=== PATIENT | female | born 1995 | race Caucasian/White ===

== ENCOUNTER → 2020-01-10 09:21 | Outpatient (CLI) | payer OTHER, SELFPAY ==
[2020-01-11 08:05] LABS: Strep Grp B PCR NEG for Grp B Strep
== END ==
PROVIDERS: Visit Provider Obstetrics & Gynecology
DX: Z34.03 Encounter for supervision of normal first pregnancy, third trimester (principal); Z3A.36 36 weeks gestation of pregnancy
CPT/HCPCS: 87653

== ENCOUNTER → 2020-02-04 10:23 | Outpatient (CLI) | payer OTHER, SELFPAY ==
--- NOTE | 2020-02-04 10:27 | DI.US.S_ITS ---
PROCEDURE: US OB BIOPHYSICAL PROFILE INDICATIONS: BPP OUTSIDE/PRIOR DATING DATA: Last menstrual period (LMP): 04/29/19. LMP-based estimated date of delivery (VIKRAM): 02/03/20. TECHNIQUE: Real-time scanning was performed of the fetus for biophysical profile, with image documentation. Color and pulse Doppler interrogation was also performed of the umbilical artery near its insertion into the placenta. Endovaginal scanning: Not performed COMPARISON: None. FINDINGS: General: A single living intrauterine gestation is present. Presentation: Vertex Placenta: Placental position is right posterior, without previa. Amniotic fluid index: 14.7 cm, normal range is 5-24 cm. heart rate: 143 beats per minute. Maternal cervical canal: 4.0 cm long. Normal lower limit is 2.5 cm. Estimated gestational age from initial scan: No prior study available.. Biophysical profile: Tone: 2 points. Movement: 2 points. Respiration: 2 points. Largest pocket of fluid: 2 points. IMPRESSION: Biophysical profile is 8 of 8 possible points. Vertex presentation. No available prior OB ultrasound studies for review. Dictated by: Tk Duncan M.D. on 02/04/2020 at 13:25 Approved by: Tk Duncan M.D. on 02/04/2020 at 13:27
== END ==
PROVIDERS: Referring Provider Obstetrics & Gynecology; Visit Provider Obstetrics & Gynecology
DX: Z34.03 Encounter for supervision of normal first pregnancy, third trimester (principal); Z3A.39 39 weeks gestation of pregnancy
CPT/HCPCS: 76819

== ENCOUNTER 2020-02-07 12:44 | Outpatient (CLI) | payer OTHER, SELFPAY ==
--- NOTE | 2020-02-07 13:04 | P.TNLD_ITS ---
Visit Information Visit Information Date of evaluation: 02/07/20 Primary OB Provider: Nadia Urbina Reason for Evaluation: Yes non-stress test Comments/Additional reasons for admission: Patienti s a 25yo @40+4 pre senting for NST as part of postdates testing. Vital Signs Vital Signs: 121/79, HR 86 PFSH Medical History Allergies (Chronic ~2016) Eczema of both upper extremities (Acute ~2017) Headache (Inactive ~2007) Migraines (Acute ~2012) Surgical History [place] teeth extracted (Acute ~2008) Family History Grandmother Ovarian cancer Heart disease Grandfather Diabetes mellitus Pancreatic cancer Family/Other Pacemaker Grandfather Pacemaker Grandmother Endometriosis Social History marital status: household members: spouse lives independently: Yes pets and animals: Yes (Does not clean littler. ) education level: college occupational status: employed current occupational exposures/hazards: Yes special chase needs: No seatbelt use: always working smoke detector in home: Yes fire extinguisher in home: Yes carbon monox detector in home: Yes firearms in home: Yes firearms unloaded and locked: Yes do you feel safe at home: Yes Smoking Status: Former smoker second hand exposure: No alcohol intake: former substance use type: does not use during the past year weight has: decreased > 10 lbs well-balanced diet: daily or most days daily servings fruits/ve-1 caffeine: No eating out: 1-3 times/week Type(s) of exercise: walking frequency: 3-4 times per week Review of Systems Constitutional Constitutional: Reports system reviewed and no additional complaints, except as documented Evaluation Evaluation Baseline heart rate: 135 Variability: Moderate (11-25) monitor accelerations: Present monitor decelerations: Absent Category of Tracing: I Diagnosis, Plan/Disposition Plan/Disposition Plan: Home, scheduled induction in 2 days. OB Disposition: home
== END 2020-02-07 13:08 | disposition home or self-care (01) ==
LOC: LABOR 13:15 → OB 02-10 15:08
PROVIDERS: Referring Provider Obstetrics & Gynecology; Visit Provider Obstetrics & Gynecology
DX: O48.0 Post-term pregnancy (principal); Z3A.40 40 weeks gestation of pregnancy; Z01.812 Encounter for preprocedural laboratory examination
CPT/HCPCS: 59025; 87635; G0378; G0379

== ENCOUNTER → 2020-02-07 15:56 | Outpatient (CLI) | payer OTHER, SELFPAY ==
[2020-02-08 04:21] LABS: COVID19 Sendout Not Detected (Not Detect)
== END ==
PROVIDERS: Visit Provider Family Medicine
DX: Z01.812 Encounter for preprocedural laboratory examination (principal)
CPT/HCPCS: 87635

== ENCOUNTER 2020-02-09 18:15 | Inpatient (IN) | payer OTHER, SELFPAY ==
[2020-02-09] MEDS: DINOPROSTONE VAG (CERVIDIL) 10 MG VAG (21:30)
[2020-02-09 22:13] LABS: Add Manual Diff / Slide Review NO; Basophils Absolute Auto 200 /uL (0-100); Basophils Percent Auto 1.8 % (0-2); Eosinophils Absolute Auto 100 /uL (0-450); Eosinophils Percent Auto 1.5 % (2-4); Hematocrit 39.4 % (36-46); Hemoglobin 13.7 g/dL (12.0-16.0); Lymphocytes Absolute Auto 1900 /uL (1100-4500); Lymphocytes Percent Auto 21.2 % (25-40); Mean Corpuscular HGB Conc 34.7 % (30-36); Mean Corpuscular Hemoglobin 32.2 PG (26-34); Mean Corpuscular Volume 92.9 fL (80-100); Monocytes Absolute Auto 700 /uL (0-900); Monocytes Percent Auto 7.3 % (3-14); Neutrophils Absolute Auto 6100 /uL (1500-7000); Neutrophils Percent Auto 68.2 % (50-75); Platelet Count 270 X10^3/uL (150-400); Red Blood Cell Count 4.24 X10^6/uL (4.0-5.2); Red Cell Distribution Width 12.3 % (11.6-14.8)
[2020-02-09 23:16] VITALS: BP 137/82
--- NOTE | 2020-02-10 08:02 | P.HPOB_ITS ---
OB HPI Date/Time Date of admission: 02/09/20 Date Patient Seen: 02/10/20 Time Patient Seen: 07:50 History of Present Condition Chief complaint: EVAL OF LABOR : 1 Para: 0 Estimated Date of Delivery: 02/03/20 Estimated Gestational Age (weeks): 41 Narrative: Le Neri is a 25 year old @41+0 admitted for induction of labor for postdates. She reported feeling well on admission with normal movement and no complaints obstetrical or otherwise, and had had reassuring testing during her 40th week. Her had been complicated by 32 week transfer from the [facility], but she has had no other complications or relevant medical services assistant, medical, surgical, or family history. Indications Indication for induction OB: post dates History of Present care: good care Dating criteria: LMP confirmed by 1st trimester US Ultrasounds: normal 1st trimester US and normal mid trimester US Obstetrical complications: none Medical complications: none Preadmission Labs Blood type: A (+) positive -: Antibody screen: negative, GBS status: negative, HBsAG: negative, HIV: negative and RPR/VDLR: negative -: Chlamydia screen: not detected and Gonorrhea screen: not detected -: Rubella: immune PAP: Normal Sequential screen: WNL 1 hr GTT: 110 Evaluation Evaluation Baseline heart rate: 130 Variability: Moderate (11-25) monitor accelerations: Present monitor decelerations: Variable Contraction Frequency (minutes): 3 Category of Tracing: II Cervical dilation (cm): 3 Cervical effacement (%): 90 station: -2 Laboratory results: Laboratory Tests 02/09/20 02/09/20 21:30 21:30 WBC 9.0 RBC 4.24 Hgb 13.7 Hct 39.4 MCV 92.9 MCH 32.2 MCHC 34.7 RDW 12.3 Plt Count 270 Neut % (Auto) 68.2 Lymph % (Auto) 21.2 L [place] % (Auto) 7.3 Eos % (Auto) 1.5 L Baso % (Auto) 1.8 Neut # (Auto) 6100 Lymph # (Auto) 1900 [place] # (Auto) 700 Eos # (Auto) 100 Baso # (Auto) 200 H Blood Type A Positive Antibody Screen Negative Comments: Rare variable decelerations, +accels, +moderate variability. PFS Medical History Allergies (Chronic ~2016) Eczema of both upper extremities (Acute ~2017) Headache (Inactive ~2007) Migraines (Acute ~2012) Surgical History [place] teeth extracted (Acute ~2008) Family History Grandmother Ovarian cancer Heart disease Grandfather Diabetes mellitus Pancreatic cancer Family/Other Pacemaker Grandfather Pacemaker Grandmother Endometriosis Social History marital status: household members: spouse lives independently: Yes pets and animals: Yes (Does not clean littler. ) education level: college occupational status: employed current occupational exposures/hazards: Yes special chase needs: No seatbelt use: always working smoke detector in home: Yes fire extinguisher in home: Yes carbon monox detector in home: Yes firearms in home: Yes firearms unloaded and locked: Yes do you feel safe at home: Yes Smoking Status: Never smoker second hand exposure: No alcohol intake: former substance use type: does not use during the past year weight has: decreased > 10 lbs well-balanced diet: daily or most days daily servings fruits/ve-1 caffeine: No eating out: 1-3 times/week Type(s) of exercise: walking frequency: 3-4 times per week Meds Home Medications and Allergies Allergies Allergy/AdvReac Type Severity Reaction Status Date / Time No Known Drug Allergies Allergy Verified 02/07/20 16:09 Review of Systems Constitutional Constitutional: Reports system reviewed and no additional complaints, except as documented Cardiovascular Cardiovascular: Reports system reviewed; no additional complaints, except as documented Respiratory Respiratory: Reports system reviewed and no additional complaints, except as d ocumented Gastrointestinal Gastrointestinal: Reports system reviewed and no additional complaints, except as documented Genitourinary Genitourinary: Reports as per HPI Exam Vital Signs (past 8 hours): 117/56, HR 83, T 37.0 Const General: cooperative, healthy appearing and other (getting uncomfortable with contractions) GI Palpation: soft and No tender Objective Labs Result Diagrams: 02/09/20 21:30 Labs: Laboratory Results - last 24 hr 02/09/20 02/09/20 21:30 21:30 WBC 9.0 RBC 4.24 Hgb 13.7 Hct 39.4 MCV 92.9 MCH 32.2 MCHC 34.7 RDW 12.3 Plt Count 270 Neut % (Auto) 68.2 Lymph % (Auto) 21.2 L [place] % (Auto) 7.3 Eos % (Auto) 1.5 L Baso % (Auto) 1.8 Neut # (Auto) 6100 Lymph # (Auto) 1900 [place] # (Auto) 700 Eos # (Auto) 100 Baso # (Auto) 200 H Blood Type A Positive Antibody Screen Negative Assessment and Plan Assessment and Plan Assessment and Plan narrative: This patient has been admitted for cervical ripening overnight, with reassuring maternal and status. She will be transitioned to pitocin per the usual protocol for ongoing induction. - cEFM, toco - Epidural when desired Time Spent with Patient Total time spent with greater than 50% in coordination of care (as documented) at patient's floor/unit and/or counseling patient:: 25 - 35 minutes
[2020-02-10] MEDS: OXYTOCIN PREMIX 30 UNIT/500 ML PLAST..BAG IV (08:31)
[2020-02-10] MEDS: LACTATED RINGERS 1,000 ML 100 ML IV ×2 (08:31→10:13)
[2020-02-10] MEDS: FENT 2MCG/ML BUPIV 0.125% EPI 200 MCG/100 ML PLAST..BAG 12 MCG EPIDURAL (10:12)
[2020-02-10] MEDS: METHYLERGONOVINE 0.2 MG/ML VIAL IM (11:41)
--- NOTE | 2020-02-10 12:40 | PM.OBPRVD ---
 Events: Labor Induction and Meconium Stained Fluid Labor & Delivery Delivery date: 02/10/20 Intrapartal events: Precipitous Labor < 3 hours, Acceleration and Deceleration Cervical ripening method: per Cervidil protocol Induction method: per pitocin protocol Delivery augmentation: rupture of membranes Delivery monitor: external FHT and external uterine Route of delivery: L&D Laceration Description: Perineal - 2nd Degree Delivery repair: vicryl Estimated blood loss (mL): 300 Anesthesia type: Epidural Narrative: This patient is a 25yo now P1 admitted at 40+6 for postdates induction. She received a cervidil overnight, and made progress to a favorable cervix in the morning. She was transitioned to pitocin, received an epidural, and was found to be fully dilated shortly thereafter. She was AROMed for thick meconium, and after an approx. 20 minute second stage, was delivered of a healthy baby girl, apgars 9+9, weight 7#12. A loose nuchal cord was reduced at the perineum, and the shoulders delivered with ease. The second stage was complicated by late and variable decelerations in the setting of rapid descent, with resolution to a normal baseline with moderate variability in between. The placenta delivered spontaneously and intact with a three vessel cord, and a 2nd degree perineal laceration was repaired with 3-0 vicryl in the usual fashion. Due to persistent lower uterine segment atony, a single dose of 0.2mg IM methergine was administered during the repair. There were no other intrapartum or immediate complications. Plan for aftercare: Routine care.
--- NOTE | 2020-02-10 13:44 | PM.OBDS.1 ---
Discharge Providers Provider Date of admission: 02/09/20 18:15 Discharge Date: 02/11/20 Consults: 02/11/20 12:39 Consult to Card Punching Machine Operator Routine Comment: Discharge provider: Nadia Urbina MD Summary Hospital Course Date Patient Seen: 02/11/20 Time Patient Seen: 10:00 Procedures: vaginal delivery Hospital Course: This patient is a 25yo now P1 admitted for induction for postdates and induced with cervidil and pitocin. She progressed to fully dilated, and was delivered of a healthy baby gifl, apgars 9+9, weight 7#12. A 2nd degree perineal laceration was repaired in the usual fashion, and her intrapartum and course were otherwise uneventful. She was discharged on PPD#1 with routine precautions. Peripartum Data Infant Delivery Method: Natural Vaginal Laceration description: Perineal - 2nd Degree complications: none 1: Gender: Female Disposition of : home Discharge Diagnosis (1) Vaginal delivery: Status: Acute Status at Discharge Cognitive/behavioral status at discharge: oriented Functional status at discharge: independent ambulation Overall status at discharge: patient is progressing back to baseline Time Spent with Patient Time attestation: Total time spent providing and/or coordinating discharge services: Time spent: Greater than 30 minutes Objective Labs Result Diagrams: 02/09/20 21:30 Labs: Laboratory Results - last 24 hr 02/09/20 02/09/20 21:30 21:30 WBC 9.0 RBC 4.24 Hgb 13.7 Hct 39.4 MCV 92.9 MCH 32.2 MCHC 34.7 RDW 12.3 Plt Count 270 Neut % (Auto) 68.2 Lymph % (Auto) 21.2 L [place] % (Auto) 7.3 Eos % (Auto) 1.5 L Baso % (Auto) 1.8 Neut # (Auto) 6100 Lymph # (Auto) 1900 [place] # (Auto) 700 Eos # (Auto) 100 Baso # (Auto) 200 H Blood Type A Positive Antibody Screen Negative Discharge Plan Discharge Plan Patient Disposition: Home Discharge orders & Medications Follow up/Referrals: Nadia Urbina MD [Physician] - 03/18/20 11:00 am (check in 15 minutes prior to appointment) Diet/Activity/Treatments Diet: Regular Activity: Nothing in the vagina for 6 weeks. Avoid lifting more than 10 lbs for 6 weeks. If you have increasing bleeding, pain, fevers, chills, trouble breathing, headaches, vision changes, nausea, vomiting, or any other symptoms or concerns, call the office number or come to the ED. Skin/Wound/Dressing Care Report to your healthcare provider any signs of infection, such as:: chills, fever, night sweats, increased pain, unusual drainage and unusual redness Visit Report/Discharge Packet Instructions: DI for Labor and Delivery, Vaginal Stand Alone Forms: Discharge: Care Visit Report Forms: Patient Portal/API, Stroke Signs & Symptoms Discharges patient from system. Discharge Date/Time: 02/11/20 13:00
[2020-02-10] MEDS: IBUPROFEN 600 MG TABLET PO ×2 (17:08→23:42)
[2020-02-10] MEDS: DERMOPLAST SPRAY 20% 60 ML 1 SPRAY TOP ×2 (17:09→23:13)
[2020-02-11] MEDS: IBUPROFEN 600 MG TABLET PO ×2 (06:01→12:08)
--- NOTE | 2020-02-11 10:50 | P.PNOB_ITS ---
Subjective - OB Subjective Patient comments: no complaints, pain well controlled, tolerating diet and flatus present baby status: doing well and nursing well [place] feeding status: exclusively breast feeding Narrative: This patient is a 25yo now P1 PPD#1 s/p after IOL for postdates. She is feeling well with good pain control, tolerating PO, passing flatus, voiding normally, with moderate lochia and ambulating without issues. No other complaints. Date Patient Seen: 02/11/20 Time Patient Seen: 11:01 Exam Vital Signs (past 8 hours): 123/87, HR 90, T 99.1F Resp Effort & Inspection: normal respiratory effort Auscultation: clear to auscultation bilaterally Cardio Rate: regular rate Rhythm: regular rhythm GI Inspection: other (small healing abrasions at site of Tamiko EFM device) Palpation: soft and No tender Other: Fundus firm, below u External Female Exam: external appearance normal and other (incision c/d/i) Skin General: no rashes or lesions noted Objective Labs Result Diagrams: 02/09/20 21:30 Assessment & Plan Assessment and Plan (1) Vaginal delivery: Status: Acute Current Visit: Yes Plan day: 1 plan OB: routine care and discharge home Comments: This patient is doing well, meeting goals and stable for discharge with outpatient follow up. Time Spent With Patient Time: Total time spent is greater than 50% in coordination of care (as documented) at patient's floor/unit and/or counseling patient: Time with patient: 15-24 minutes
[2020-02-11 12:32] VITALS: BP 137/82; PULSE 90; RESP 17; TEMP 36.3
== END 2020-02-11 13:00 | disposition home or self-care (01) | DRG 807 ==
PROVIDERS: Admitting Provider Obstetrics & Gynecology; Referring Provider Family Medicine; Visit Provider Obstetrics & Gynecology
DX: O48.0 Post-term pregnancy (principal); Z37.0 Single live birth; Z3A.41 41 weeks gestation of pregnancy; O77.0 Labor and delivery complicated by meconium in amniotic fluid; O69.81X0 Labor and delivery complicated by cord around neck, without compression, not applicable or unspecified; O70.1 Second degree perineal laceration during delivery
CPT/HCPCS: 01967; 59050; 59200; 59410; 85025; 86850; 86900; 86901; G0379; J2210; J2590

== ENCOUNTER → 2022-02-25 16:49 | Outpatient (CLI) | payer OTHER, SELFPAY ==
[2022-02-25 17:37] LABS: Appearance Urine UA CLEAR; Bilirubin Urine UA NEGATIVE (NEGATIVE); Color Urine UA YELLOW; Glucose Urine UA NEGATIVE (Negative); Ketones Urine UA NEGATIVE (NEGATIVE); Leukocyte Esterase Urine UA NEGATIVE (NEGATIVE); Nitrite Urine UA NEGATIVE (Negative); Occult Blood Urine UA NEGATIVE (Negative); Protein Urine UA NEGATIVE (Negative); Specific Gravity Urine UA <=1.005 (1.000-1.035); Urobilinogen Urine UA 0.2 E.U./dL (0.2)
[2022-02-25 17:42] LABS: pH Urine UA 6.5 (4.5-8.0)
[2022-02-25 18:09] LABS: Add Manual Diff / Slide Review NO; Basophils Absolute Auto 100 /uL (0-100); Basophils Percent Auto 0.9 % (0-2); Eosinophils Absolute Auto 100 /uL (0-450); Eosinophils Percent Auto 1.4 % (2-4); Hematocrit 35.9 % (36-46); Hemoglobin 12.7 g/dL (12.0-16.0); Lymphocytes Absolute Auto 3000 /uL (1100-4500); Lymphocytes Percent Auto 39.2 % (25-40); Mean Corpuscular HGB Conc 35.4 % (30-36); Mean Corpuscular Hemoglobin 30.9 PG (26-34); Mean Corpuscular Volume 87.3 fL (80-100); Monocytes Absolute Auto 700 /uL (0-900); Monocytes Percent Auto 8.4 % (3-14); Neutrophils Absolute Auto 3900 /uL (1500-7000); Neutrophils Percent Auto 50.1 % (50-75); Platelet Count 296 X10^3/uL (150-400); Red Blood Cell Count 4.11 X10^6/uL (4.0-5.2); Red Cell Distribution Width 12.1 % (11.6-14.8); White Blood Cell Count 7.7 X10^3/uL (4.5-11.0)
[2022-02-26 06:17] LABS: RPR Screen Non Reactive (Non Reactive)
[2022-02-27 06:11] LABS: Varicella IgG Antibody 301 index (Immune >165)
[2022-02-28 16:44] LABS: HIV 1 & 2 Ab/Ag 4th Gen Combo NEGATIVE (NEGATIVE); Hep C Virus Ab w/Reflex Quant NEGATIVE s/c (NEGATIVE); Hepatitis B Surface Antigen NEGATIVE s/c (NEGATIVE)
[2022-03-11 11:55] LABS: Specimen Label NATERA
== END ==
PROVIDERS: PCP Obstetrics & Gynecology; Referring Provider Obstetrics & Gynecology; Visit Provider Obstetrics & Gynecology
DX: Z34.81 Encounter for supervision of other normal pregnancy, first trimester (principal)
CPT/HCPCS: 36415; 80055; 81003; 86787; 86803; 86850; 86900; 86901; 87086; 87389

== ENCOUNTER → 2022-04-26 16:25 | Outpatient (CLI) | payer OTHER, SELFPAY ==
[2022-04-29 20:38] LABS: AFP Value 41.3 ng/mL (.); Gest Age on Col Date 17.7 weeks (.); Insulin Dep Diabetes No (.); OSBR Risk 1IN 8371 (.); Results Report (.); Test Results *Screen Negative* (.)
== END ==
PROVIDERS: Referring Provider Obstetrics & Gynecology; Visit Provider Obstetrics & Gynecology
DX: Z34.82 Encounter for supervision of other normal pregnancy, second trimester (principal); Z3A.17 17 weeks gestation of pregnancy
CPT/HCPCS: 36415; 82105; 87086

== ENCOUNTER → 2022-05-13 07:36 | Outpatient (CLI) | payer OTHER, SELFPAY ==
--- NOTE | 2022-05-13 07:38 | DI.US.S_ITS ---
PROCEDURE: US OB >= 14 WEEKS FETUS INDICATIONS: ANATOMY OUTSIDE/PRIOR DATING DATA: Last menstrual period (LMP): Unknown. First dating scan (date and location): 02/25/2022 Estimated date of delivery (VIKRAM) from first dating scan: 09/27/2022. TECHNIQUE: Real-time scanning was performed of the fetus, with image documentation and biometric measurements. Endovaginal scanning: Not performed COMPARISON: [facility], , OB >= 14 WEEKS FETUS, 02/07/2020, 12:04. FINDINGS: General: A single living intrauterine gestation is present. Presentation: Variable. Placenta: Placental position is posterior left , without previa. Marginal cord insertion 1.1 cm from the placental edge. Amniotic fluid index: 13.5 cm, normal range is 5-24 cm. Single deepest vertical pocket is 5.0 cm. heart rate: 143 beats per minute. Maternal cervical canal: 5.7 cm long. Normal lower limit is 2.5 cm. biometrics: Biparietal diameter: 4.9 cm, 20 weeks 5 days Head circumference: 17.7 cm, 20 weeks 1 day Abdominal circumference: 16.2 cm, 21 weeks 2 days Femur length: 3.4 cm, 20 weeks 4 days Composite gestational age from present scan: 20 weeks 5 days Estimated weight and percentile: 384 g, 71st percentile Anatomic survey: Neuro: Ventricles are non-dilated at less than 10 mm. Cisterna magna is normal at 3-11 mm. Cerebellum is normal in size and morphology. Nuchal skin fold: Normal at less than 6 mm between 14-21 weeks gestational age. Face: Nose and lips are normal. Profile not well seen. Spine: No evidence for spina bifida. Heart: 4-chambered heart is present unremarkable RVOT. LVOT not well seen.. Diaphragm: Diaphragm is intact. Stomach: Left-sided stomach is present. Kidneys: No hydronephrosis. Normal is less than 5 mm in 2nd trimester, less than 7 mm in 3rd trimester. Cord: 3-vessel cord has orthotopic insertion. Bladder: Normal in size. Extremities: All 4 extremities identified. IMPRESSION: 1. Single living intrauterine in variable presentation. 2. The facial profile and left ventricular outflow tract are not well visualized. Short interval follow-up/re-evaluation could be performed if clinically indicated. 3. Visualized anatomy is within normal limits. 4. Marginal umbilical cord insertion on the placenta. Recommend follow-up ultrasound for growth assessment and to evaluate for progression to velamentous cord origin at 28-32 weeks gestational age. We strive to produce accurate, complete, and clear reports of imaging services. To assist us in improving patient care, this report was composed using standard report templates and voice recognition software. Therefore, it may contain abnormal punctuation, insertions and/or omissions. Occasional wrong-word or sound-alike substitutions may occur. Though we review the report and make efforts to correct it, we do recommend that the report be read carefully in proper context to recognize any text inaccuracies. Dictated by: Jordin Inman M.D. on 05/13/2022 at 18:46 Approved by: Jordin Inman M.D. on 05/13/2022 at 18:57
== END ==
PROVIDERS: PCP Student in an Organized Health Care Education/Training Program; Referring Provider Obstetrics & Gynecology; Visit Provider Obstetrics & Gynecology
DX: Z34.82 Encounter for supervision of other normal pregnancy, second trimester (principal); Z3A.20 20 weeks gestation of pregnancy
CPT/HCPCS: 76811

== ENCOUNTER → 2022-05-27 07:52 | Outpatient (CLI) | payer OTHER, SELFPAY ==
--- NOTE | 2022-05-27 07:52 | DI.US.S_ITS ---
PROCEDURE: US OB FOLLOW UP INDICATIONS: FOLLOW UP ANATOMY OUTSIDE/PRIOR DATING DATA: First dating scan (date and location): 02/25/2022 Estimated date of delivery (VIKRAM) from first dating scan: 09/27/2022 TECHNIQUE: Real-time scanning was performed of the fetus, with image documentation. Endovaginal scanning: Not performed COMPARISON: 05/13/2022 FINDINGS: A single living intrauterine gestation is present. Presentation: Breech Placenta: Posterior without previa Amniotic fluid index: 12.4 heart rate: 140 beats per minute Maternal cervical canal: 5.7 cm Working gestational age based on 1st ultrasound is 22 weeks and 3 days. The outflow tracks of the heart are within normal limits on today's study. The facial profile view is also within normal limits. Again seen is the superior marginal cord insertion. IMPRESSION: Living intrauterine gestation at 22 weeks and 3 days. Posterior placenta without previa. Profile view and cardiac outflow views are well seen and within normal limits. This completes the anatomic survey, in combination with the prior study. Superior marginal cord insertion. Recommendations provided on prior imaging report. Dictated by: Lonnie Palmer M.D. on 05/27/2022 at 12:11 Approved by: Lonnie Palmer M.D. on 05/27/2022 at 12:14
== END ==
PROVIDERS: PCP Student in an Organized Health Care Education/Training Program; Referring Provider Obstetrics & Gynecology; Visit Provider Obstetrics & Gynecology
DX: Z34.82 Encounter for supervision of other normal pregnancy, second trimester (principal); Z3A.22 22 weeks gestation of pregnancy
CPT/HCPCS: 76816

== ENCOUNTER 2022-06-24 07:45 | Outpatient (CLI) | payer OTHER, SELFPAY ==
--- NOTE | 2022-06-24 09:16 | P.TNLD_ITS ---
Visit Information Visit Information Date of evaluation: 06/24/22 Primary OB Provider: Genet Benjamin On-call OB Provider: Genet Benjamin Reason for Evaluation: Yes non-stress test Comments/Additional reasons for admission: Le is a 27 yo Here for a nonstress test to check extended heart rate tracing due to heart rate ectopy auscultated in the office with frequent successive beats of ectopy 2 days ago.. She was unable to stay for the nonstress test at that visit. [facility] Medical History (Updated 06/24/22 @ 09:27 by Genet Benjamin MD) Allergies (~2016) Eczema of both upper extremities (~2017) Headache (~2007) Migraines (~2012) Surgical History [place] teeth extracted (~2008) Family History (Updated 02/18/22 @ 10:10 by Mary Ward RN) Grandmother Ovarian cancer Heart disease Grandfather Diabetes mellitus Pancreatic cancer Family/Other Pacemaker Grandfather Pacemaker Grandmother Endometriosis Father DVT (deep venous thrombosis) Social History marital status: number of children: 1 household members: spouse lives independently: Yes housing: house pets and animals: Yes (3 cats, 1 dog, 1 turtle, does not manage pet waste) education level: college 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) current occupational exposures/hazards: Yes special chase needs: No travel history: over 6 months ago seatbelt use: always helmet use: Yes water heater temp set < 120 deg: Yes working smoke detector in home: Yes fire extinguisher in home: Yes carbon monox detector in home: Yes firearms in home: Yes firearms unloaded and locked: Yes do you feel safe at home: Yes Smoking Status: Never smoker second hand exposure: No ( smokes, but stays away from pt and child when doing so) alcohol intake: former substance use type: does not use during the past year weight has: increased > 10 lbs well-balanced diet: daily or most days daily servings fruits/ve-4 caffeine: Yes eating out: 1-3 times/week Type(s) of exercise: walking and weight lifting (heavy lifting at work) frequency: 3-4 times per week Evaluation Evaluation Baseline heart rate: 140 Variability: Average (6-10) monitor accelerations: Present (EGA appropriate 8-10 bt accels, also audible with FM) Monitor Decelerations: Absent Status: Category l Comments: on 40 minute of monitoring Only a few beats of ectopy in the first 5 minutes and the last 5 minutes. Reassuring EFM Diagnosis, Plan/Disposition Final Diagnosis (1) Irregular heart rate affecting management of mother: Status: Acute Problem details: frequent FHR ectopy on office auscultation Plan/Disposition Plan: Only occasional heart rate skips beats, ectopy, today. No signs of arrhythmia on the EFM. EFM reassuring. Rviewed with the patient. Will have her return to the office in 2 weeks to recheck EFM auscultation. OB Disposition: home
== END 2022-06-24 09:10 | disposition home or self-care (01) ==
LOC: LABOR 08:53 → OB 06-27 17:11
PROVIDERS: PCP Student in an Organized Health Care Education/Training Program; Referring Provider Obstetrics & Gynecology; Visit Provider Obstetrics & Gynecology
DX: O36.8330 Maternal care for abnormalities of the fetal heart rate or rhythm, third trimester, not applicable or unspecified (principal); Z3A.26 26 weeks gestation of pregnancy
CPT/HCPCS: 36415; 59025; 82950; 84439; 84443; 85014; 85018; G0378; G0379

== ENCOUNTER → 2022-06-24 09:31 | Outpatient (CLI) | payer OTHER, SELFPAY ==
[2022-06-24 11:45] LABS: Hematocrit 34.6 % (36-46); Hemoglobin 11.9 g/dL (12.0-16.0)
[2022-06-24 12:04] LABS: GTT (PREG) 1 Hour PP 50gm Dose 132 mg/dL (76-139)
[2022-06-24 12:20] LABS: Free T4, Direct Thyroxine 0.78 ng/dL (0.78-2.19)
[2022-06-24 12:35] LABS: Thyroid Stimulating Hormone 0.841 uIU/mL (0.47-4.68)
== END ==
PROVIDERS: PCP Student in an Organized Health Care Education/Training Program; Referring Provider Obstetrics & Gynecology; Visit Provider Obstetrics & Gynecology
DX: O36.8390 Maternal care for abnormalities of the fetal heart rate or rhythm, unspecified trimester, not applicable or unspecified (principal); Z3A.26 26 weeks gestation of pregnancy
CPT/HCPCS: 36415; 82950; 84439; 84443; 85014; 85018

== ENCOUNTER → 2022-08-03 13:01 | Outpatient (CLI) | payer OTHER, SELFPAY ==
--- NOTE | 2022-08-03 13:02 | DI.US.S_ITS ---
PROCEDURE: US OB LIMITED INDICATIONS: EFW; PLACENTAL CORD INSERT OUTSIDE/PRIOR DATING DATA: Last menstrual period (LMP): Unknown. LMP-based estimated date of delivery (VIKRAM): Unknown. First dating scan (date and location): 02/25/2022. Estimated date of delivery (VIKRAM) from first dating scan: 10/17/2021. The calculations are made using the ultrasound VIKRAM of 10/17/2021. TECHNIQUE: Real-time scanning was performed of the fetus, with image documentation and biometric measurements. Biophysical profile was also obtained. COMPARISON: [facility], OB FOLLOW UP, 05/27/2022, 8:24. [facility], OB >= 14 WEEKS FETUS, 05/13/2022, 7:54. [facility] PELVIC COMPLETE, 02/25/2022, 16:38. FINDINGS: General: A single living intrauterine gestation is present. Presentation: Vertex. Placenta: Placental position is posterior , without previa. Amniotic fluid index: 12.7 cm, normal range is 5-24 cm. Single deepest vertical pocket is 3.9 cm. heart rate: 139 beats per minute. Maternal cervical canal: 4.4 cm long. Normal lower limit is 2.5 cm. biometrics: Biparietal diameter: 8.4 cm 33 weeks 5 days Head circumference: 30.2 cm 33 weeks 4 days Abdominal circumference: 27.8 cm 31 weeks 6 days Femur length: 6.2 cm 32 weeks 1 day Composite gestational age from initial ultrasound: 32 weeks 1 day Composite gestational age from present scan: 32 weeks 6 days Estimated weight and percentile: 1009 and 42 g, 44th percentile Miscellaneous: Placental cord insertion measures 3.2 cm from the margin. IMPRESSION: Single live intrauterine with ultrasound gestational age of 32 weeks 6 days. Placental cord insertion 3.2 cm from the margin. Appropriate interval growth. We strive to produce accurate, complete, and clear reports of imaging services. To assist us in improving patient care, this report was composed using standard report templates and voice recognition software. Therefore, it may contain abnormal punctuation, insertions and/or omissions. Occasional wrong-word or sound-alike substitutions may occur. Though we review the report and make efforts to correct it, we do recommend that the report be read carefully in proper context to recognize any text inaccuracies. Dictated by: Bernice Spencer M.D. on 08/03/2022 at 16:13 Approved by: Bernice Spencer M.D. on 08/03/2022 at 16:15
== END ==
PROVIDERS: PCP Student in an Organized Health Care Education/Training Program; Referring Provider Obstetrics & Gynecology; Visit Provider Obstetrics & Gynecology
DX: O43.193 Other malformation of placenta, third trimester (principal); Z3A.32 32 weeks gestation of pregnancy
CPT/HCPCS: 76815

== ENCOUNTER → 2022-09-07 14:20 | Outpatient (CLI) | payer OTHER, SELFPAY ==
[2022-09-08 15:17] LABS: Strep Grp B PCR NEG for Grp B Strep
== END ==
PROVIDERS: PCP Student in an Organized Health Care Education/Training Program; Referring Provider Obstetrics & Gynecology; Visit Provider Obstetrics & Gynecology
DX: Z36.85 Encounter for antenatal screening for Streptococcus B; Z3A.36 36 weeks gestation of pregnancy
CPT/HCPCS: 87653

== ENCOUNTER 2022-09-29 10:17 | Outpatient (CLI) | payer OTHER, SELFPAY ==
--- NOTE | 2022-09-29 10:48 | P.TNLD_ITS ---
Visit Information Visit Information Date of evaluation: 09/29/22 Primary OB Provider: Ayaan Rodriguez Reason for Evaluation: Yes non-stress test Comments/Additional reasons for admission: 27 yo at 40+0 wks EGA for [facility] Medical History (Updated 09/29/22 @ 10:10 by Ayaan Rodriguez MD) Allergies (~2016) Eczema of both upper extremities (~2017) Headache (~2007) Migraines (~2012) Surgical History [place] teeth extracted (~2008) Family History (Updated 02/18/22 @ 10:10 by Mary Ward RN) Grandmother Ovarian cancer Heart disease Grandfather Diabetes mellitus Pancreatic cancer Family/Other Pacemaker Grandfather Pacemaker Grandmother Endometriosis Father DVT (deep venous thrombosis) Social History marital status: number of children: 1 household members: spouse lives independently: Yes housing: house pets and animals: Yes (3 cats, 1 dog, 1 turtle, does not manage pet waste) education level: college 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) current occupational exposures/hazards: Yes special chase needs: No travel history: over 6 months ago seatbelt use: always helmet use: Yes water heater temp set < 120 deg: Yes working smoke detector in home: Yes fire extinguisher in home: Yes carbon monox detector in home: Yes firearms in home: Yes firearms unloaded and locked: Yes do you feel safe at home: Yes Smoking Status: Never smoker second hand exposure: No ( smokes, but stays away from pt and child when doing so) alcohol intake: former substance use type: does not use during the past year weight has: increased > 10 lbs well-balanced diet: daily or most days daily servings fruits/ve-4 caffeine: Yes eating out: 1-3 times/week Type(s) of exercise: walking and weight lifting (heavy lifting at work) frequency: 3-4 times per week Evaluation Evaluation Baseline heart rate: 135 Variability: Moderate (11-25) monitor accelerations: Present Monitor Decelerations: Absent Category of Tracing: Reactive Diagnosis, Plan/Disposition Plan/Disposition Plan: Continue routine care w/ kick counts and counselled re: labor. Induction at 41 weeks if undelivered. OB Disposition: home
== END 2022-09-29 10:55 | disposition home or self-care (01) ==
LOC: OB 10-01 15:27
PROVIDERS: PCP Student in an Organized Health Care Education/Training Program; Referring Provider Obstetrics & Gynecology; Visit Provider Obstetrics & Gynecology
DX: O48.0 Post-term pregnancy (principal); Z3A.40 40 weeks gestation of pregnancy
CPT/HCPCS: 59025; G0378; G0379

== ENCOUNTER 2022-10-02 23:03 | Inpatient (IN) | payer OTHER, SELFPAY ==
--- NOTE | 2022-10-03 00:29 | PM.OBHP.IH.1 ---
OB HPI Date/Time Date of admission: 10/03/22 Date Patient Seen: 10/03/22 Time Patient Seen: 00:33 History of Present Condition Chief complaint: contractions VIKRAM Calculator Estimated Delivery Date Method Current WG Current Estimate 09/29/22 LMP (Certain) 40w 4d Other Estimates 09/27/22 Ultrasound #1 40w 6d : 2 Para: 1 care: good care Dating criteria OB: based on LMP only Ultrasounds: normal mid trimester US Abnormal ultrasound findings: marginal cord insertion resolved Obstetrical complications: other ( ectopy noted in second trimester - resolved) Preadmission Labs Last OB Lab Results: Blood Type A Positive 02/25/22 17:03 Antibody Screen Negative 02/25/22 17:03 Hematocrit 34.6 % (36-46) L 06/24/22 10:30 Hemoglobin 11.9 g/dL (12.0-16.0) L 06/24/22 10:30 Hepatitis B Surface Antigen Negative s/c (NEGATIVE) 02/25/22 17:03 Hepatitis C Antibody Negative s/c (NEGATIVE) 02/25/22 17:03 Rubella Antibody 117.0 IU/mL (>15) 02/25/22 17:03 Varicella-Zoster IgG Antibody 301 index (Immune >165) 02/25/22 17:03 Glucose 1 Hour 132 mg/dL (76-139) 06/24/22 10:30 Group B Streptococcus (PCR) Neg for grp b strep 09/07/22 14:20 Genetic Screens: Cell-free DNA: Normal and Alpha-fetoprotein: Normal Prior (ies) Past Pregnancies Del. Date GA/Weeks Labor Lgth Wt Sex Route Outcome Anesthesia Place Delv Breastfeed Preg Comp Name 02/10/20 41 5 7 lb 11 oz Female vaginal live - full term IH 8 months none Jemma Evaluation Evaluation Uterine Contraction Intensity: Moderate Status: Category l Dilation (cm): 4 Effacement (%): 75 station: 0 Comments: membranes intact [facility] Medical History Allergies (~2016) Eczema of both upper extremities (~2017) Headache (~2007) Migraines (~2012) Surgical History [place] teeth extracted (~2008) Family History Grandmother Ovarian cancer Heart disease Grandfather Diabetes mellitus Pancreatic cancer Family/Other Pacemaker Grandfather Pacemaker Grandmother Endometriosis Father DVT (deep venous thrombosis) Social History marital status: number of children: 1 household members: spouse lives independently: Yes housing: house pets and animals: Yes (3 cats, 1 dog, 1 turtle, does not manage pet waste) education level: college 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) current occupational exposures/hazards: Yes special chase needs: No travel history: over 6 months ago seatbelt use: always helmet use: Yes water heater temp set < 120 deg: Yes working smoke detector in home: Yes fire extinguisher in home: Yes carbon monox detector in home: Yes firearms in home: Yes firearms unloaded and locked: Yes do you feel safe at home: Yes Smoking Status: Never smoker second hand exposure: No ( smokes, but stays away from pt and child when doing so) alcohol intake: former substance use type: does not use during the past year weight has: increased > 10 lbs well-balanced diet: daily or most days daily servings fruits/ve-4 caffeine: Yes eating out: 1-3 times/week Type(s) of exercise: walking and weight lifting (heavy lifting at work) frequency: 3-4 times per week Meds Home Medications and Allergies Home Medications Medication Instructions Recorded Confirmed Type prenat.vits,elder,qdf-[id number]-dcbca 1 tab PO DAILY 03/18/20 10/02/22 History Allergies Allergy/AdvReac Type Severity Reaction Status Date / Time No Known Drug Allergies Allergy Verified 10/02/22 23:41 Review of Systems Review of Systems ROS: Yes All systems reviewed with the patient and are negative except as otherwise documented OB Exam Vital signs Blood Pressure: 130/86 Temperature: 97.5 F Narrative Exam Narrative: focusing during contractions Cardio Rate: regular rate Rhythm: regular rhythm GI Palpation: Yes soft Presentation: vertex (per RN) Estimated Weight (lbs): 7 Objective Labs Result Diagrams: 10/03/22 00:26 Assessment and Plan Assessment and Plan Assessment and Plan narrative: 27yo with spontaneous labor at 40 !/2 weeks GBS negative / covid pending BT - A+, rub immune Tracing reassuring Membranes intact Desires unmedicated labor / delivery Anticipate Time Spent with Patient Total time spent with greater than 50% in coordination of care (as documented) at patient's floor/unit and/or counseling patient:: 25 - 35 minutes
[2022-10-03 00:49] VITALS: BP 117/64
[2022-10-03 00:50] LABS: Add Manual Diff / Slide Review NO; Basophils Absolute Auto 0 /uL (0-100); Basophils Percent Auto 0.4 % (0-2); Eosinophils Absolute Auto 100 /uL (0-450); Eosinophils Percent Auto 0.6 % (2-4); Hematocrit 38.2 % (36-46); Hemoglobin 12.8 g/dL (12.0-16.0); Lymphocytes Absolute Auto 2700 /uL (1100-4500); Lymphocytes Percent Auto 26.6 % (25-40); Mean Corpuscular HGB Conc 33.6 % (30-36); Mean Corpuscular Hemoglobin 30.5 PG (26-34); Mean Corpuscular Volume 90.7 fL (80-100); Monocytes Absolute Auto 700 /uL (0-900); Monocytes Percent Auto 7.1 % (3-14); Neutrophils Absolute Auto 6700 /uL (1500-7000); Neutrophils Percent Auto 65.3 % (50-75); Platelet Count 325 X10^3/uL (150-400); Red Blood Cell Count 4.21 X10^6/uL (4.0-5.2); Red Cell Distribution Width 12.9 % (11.6-14.8); White Blood Cell Count 10.2 X10^3/uL (4.5-11.0)
[2022-10-03 00:55] VITALS: BP 130/86; TEMP 36.4
[2022-10-03 01:33] LABS: COVID19 -Nasal RAPID Negative (Negative)
[2022-10-03] MEDS: LACTATED RINGERS 1,000 ML 999 ML IV (01:48)
--- NOTE | 2022-10-03 02:42 | PM.OBPRVD ---
Labor & Delivery Delivery date: 10/03/22 Intrapartal Events: None Cervical ripening method: none Induction method: none Route of delivery: L&D Laceration Description: Perineal - 2nd Degree (local lidocaine used) Delivery repair: vicryl (3-0) Estimated blood loss (mL): 200 Anesthesia Type: None Narrative: 27 yo G2 now P2 admitted with regular ctx and 4 cm dilated at 40 1/2 weeks. Rapid active phase and second stage. SROM / clear at complete. Delivered vigorous male OA over second degree tear. Baby placed on mother's chest for drying and stimulation. Cord clamped after intentional delay - FOB cut. Apgars 9/9. Cord blood collected. Intact placenta with 3 VC delivered spontaneously. Repair done with local lidocaine and 3-0 Vicryl. EBL 200. Parents happy to see [place]. Plan for aftercare: Routine care
[2022-10-03 03:07] VITALS: BP 113/71; PULSE 82; RESP 16; TEMP 36.3
[2022-10-03] MEDS: LIDOCAINE 1% 20 ML (03:09)
[2022-10-03] MEDS: OXYTOCIN PREMIX 30 UNIT/500 ML PLAST..BAG 250 UNIT IV (03:10)
[2022-10-03] MEDS: ACETAMINOPHEN 325 MG TABLET 650 MG PO ×2 (04:42→11:16)
[2022-10-03 07:00] VITALS: BP 113/71; PULSE 82; RESP 16; TEMP 36.3
[2022-10-03] MEDS: PRENATAL VIT,CALC/IRON/FOLIC 1 TABLET 1 TAB PO (10:08)
[2022-10-03] MEDS: DOCUSATE 100 MG CAPSULE PO (10:08)
[2022-10-03] MEDS: IBUPROFEN 600 MG TABLET PO (11:16)
[2022-10-04] MEDS: ACETAMINOPHEN 325 MG TABLET 650 MG PO (02:55)
[2022-10-04] MEDS: IBUPROFEN 600 MG TABLET PO (02:55)
[2022-10-04 06:38] LABS: Add Manual Diff / Slide Review NO; Basophils Absolute Auto 100 /uL (0-100); Basophils Percent Auto 0.6 % (0-2); Eosinophils Absolute Auto 100 /uL (0-450); Eosinophils Percent Auto 1.5 % (2-4); Hematocrit 32.7 % (36-46); Lymphocytes Absolute Auto 2500 /uL (1100-4500); Lymphocytes Percent Auto 28.1 % (25-40); Mean Corpuscular HGB Conc 33.6 % (30-36); Mean Corpuscular Hemoglobin 30.6 PG (26-34); Mean Corpuscular Volume 91.1 fL (80-100); Monocytes Absolute Auto 500 /uL (0-900); Monocytes Percent Auto 5.8 % (3-14); Neutrophils Absolute Auto 5700 /uL (1500-7000); Platelet Count 260 X10^3/uL (150-400); Red Blood Cell Count 3.59 X10^6/uL (4.0-5.2)
--- NOTE | 2022-10-04 08:01 | PM.OBDS.1 ---
Discharge Providers Provider Date of admission: 10/02/22 23:03 Discharge Date: 10/04/22 Primary care physician: Gabi Miller MD Consults: 10/04/22 02:39 Consult to Remote Sensing Analyst Routine Comment: Discharge provider: Ayaan Rodriguez MD Summary Hospital Course Date Patient Seen: 10/04/22 Time Patient Seen: 08:01 Diagnoses: Intrauterine , 40+4 weeks EGA, delivered via vaginal Hospital Course: Patient presented early on the morning of 10/03/2022 in active labor and delivered spontaneously shortly after her arrival a viable male infant, sustaining a second-degree perineal laceration at the time of delivery. Following delivery both mother and baby have done extremely well with mother experiencing prompt return of bowel and bladder function, she is remained afebrile and normotensive, she is tolerating a regular diet, she is ambulating independently, and her pain is well relieved with oral pain medications. She will be discharged at this time to home after counseling regarding precautionary symptoms, limitations of activity, medications, and plans for follow-up which will be in 6 weeks. She will continue use of vitamins daily and use [id number]-hydxkty Tylenol and/or ibuprofen as needed for pain relief. Peripartum Data Delivery Method: Natural Vaginal Laceration Description: Perineal - 2nd Degree Episiotomy description: None complications: none Harper 1: Gender: Male Disposition of : home Status at Discharge Cognitive/behavioral status at discharge: oriented Functional status at discharge: independent ambulation Overall status at discharge: patient is progressing back to baseline Time Spent with Patient Time attestation: Total time spent providing and/or coordinating discharge services: Time spent: Less than 30 minutes Objective Labs Result Diagrams: 10/04/22 06:25 Labs: Laboratory Results - last 24 hr 10/04/22 06:25 WBC 9.0 RBC 3.59 L Hgb 11.0 L Hct 32.7 L MCV 91.1 MCH 30.6 MCHC 33.6 RDW 13.0 Plt Count 260 Neut % (Auto) 64.0 Lymph % (Auto) 28.1 [place] % (Auto) 5.8 Eos % (Auto) 1.5 L Baso % (Auto) 0.6 Neut # (Auto) 5700 Lymph # (Auto) 2500 [place] # (Auto) 500 Eos # (Auto) 100 Baso # (Auto) 100 Exam Const General: cooperative and comfortable Nutritional Appearance: average body habitus Orientation: alert and oriented x3 HENMT Head: normal to inspection, atraumatic and abrasion Ears: hearing grossly normal bilaterally Face and sinus: face symmetric Eyes General: appearance normal, both eyes and all related structures Conjunctivae: conjunctivae normal Sclera: sclerae normal EOM: EOM intact bilaterally Neck Neck: normal visual inspection Resp Effort & Inspection: normal respiratory effort and able to speak in complete sentences Auscultation: clear to auscultation bilaterally GI Inspection: normal to inspection Palpation: soft, no hepatosplenomegaly and mass (Firm, nontender, U -6) External Female Exam: other (Perineum intact, no significant bleeding noted) Extrem General: no calf tenderness Psych Appearance: grossly normal Mental Status: mental status grossly normal Speech and Movement: speech and movement normal Mood: congruent mood Affect: normal affect Attitude: cooperative Thought Process: normal Thought Content: normal Judgment: judgment good Discharge Plan Discharge Plan Patient Disposition: Home Provider Discharge Comment: Please review the written instructions you received when you were discharged from the hospital. Your follow-up visit will be scheduled for 6 weeks after your delivery and I look forward to seeing you then. If however in the meanwhile you have any issues, concerns, or problems, please contact me either through the office phone at [phone], or via the patient portal. Discharge orders & Medications Prescriptions: Continued prenat.vits,elder,[id number] Tablet 1 tab PO DAILY Follow up/Referrals: Gabi Mliler MD [Primary Care Provider] - Ayaan Rodriguez MD [Physician] - (Appointment with on Wednesday, November 15 at 2PM.) Discharge Health Status Multidrug resistant organism: No MDRO Diet/Activity/Treatments Diet: Diet as Tolerated Activity: As tolerated Other treatments: Ovsp-aif-tdiihan Tylenol and/or ibuprofen may be used pain. Vqdh-ian-wptiloh stool softeners and/or MiraLax may use for constipation Skin/Wound/Dressing Care Report to your healthcare provider any signs of infection, such as:: chills, fever, increased pain, unusual drainage and unusual redness Dressing: N/A Visit Report/Discharge Packet Instructions: DI for Labor and Delivery, Vaginal , DI for and Nipple Soreness Stand Alone Forms: Discharge: Care, Patient Portal/API, Stroke Signs & Symptoms Discharge Data Primary Care Provider: Gabi Miller
[2022-10-04] MEDS: DOCUSATE 100 MG CAPSULE PO (08:33)
[2022-10-04] MEDS: PRENATAL VIT,CALC/IRON/FOLIC 1 TABLET 1 TAB PO (08:33)
== END 2022-10-04 13:24 | disposition home or self-care (01) | DRG 807 ==
PROVIDERS: Admitting Provider Obstetrics & Gynecology; PCP Student in an Organized Health Care Education/Training Program; Referring Provider Obstetrics & Gynecology; Visit Provider Obstetrics & Gynecology
DX: O70.1 Second degree perineal laceration during delivery (principal); Z37.0 Single live birth; Z3A.40 40 weeks gestation of pregnancy; Z20.822 Contact with and (suspected) exposure to COVID-19
CPT/HCPCS: 36415; 59050; 59400; 59409; 85025; 86850; 86900; 86901; 87635; C9803; G0379; J2590